=== PATIENT | female | born 1990 | race American Indian/Alaskan Native ===

== ENCOUNTER 2017-10-11 22:55 | Emergency (ER) | payer SELFPAY ==
[2017-10-12 00:13] VITALS: BP 143/94
== END 2017-10-12 03:42 | disposition left against medical advice (07) ==
LOC: ED 22:55
DX: H92.01 Otalgia, right ear (principal); R09.81 Nasal congestion; Z53.21 Procedure and treatment not carried out due to patient leaving prior to being seen by health care provider